=== PATIENT | male | born 1985 | race Two or more races ===

== ENCOUNTER 2017-01-30 12:18 | Emergency (ER) | payer SELFPAY ==
[2017-01-30] VITALS (8 sets, daily range): BP systolic 118–125; BP diastolic 63–83
[~2017-01-30] VITALS: Ht 165.1 cm; Wt 59.0 kg
--- NOTE | 2017-01-30 12:48 | Emergency Room Report ---
History of Present Illness General Chief Complaint: General Complaint Source: EMS (Massiel Reilly) Present Illness HPI 31-year-old male presents to the emergency department brought by ED for danger to self he was noted to be walking directly into traffic on multiple occasions even in the presence of first responders. Patient states he has a history of schizophrenia, has not been taking his medications for approximately 6 months. Reports recent use of LSD. Does not give the name of medications for which she takes. Patient cooperation is very limited. Denies SI/HI, Trauma or fall. Denies pain. Patient is intermittently talkative and appropriate for conversations however using clear words. Denies trauma or fall, denies pain denies past medical history other than schizophrenia. (Massiel Reilly) Allergies: Coded Allergies: No Known Allergies (Unverified , 01/30/17) Patient History Past Medical History: psych hx Past Surgical History: unable to obtain Pertinent Family History: unable to obtain Social History: Reports: drug use - LSD Reviewed Nursing Documentation: PMH: Agreed, PSxH: Agreed (Massiel Reilly) Nursing Documentation-PMH Past Medical History: No Stated History (Massiel Reilly) Review of Systems All Other Systems: negative except mentioned in HPI (Massiel Reilly) Physical Exam Vital Signs Date Time Temp Pulse Resp B/P (MAP) Pulse Ox O2 Delivery O2 Flow Rate FiO2 01/30/17 12:23 98.1 113 18 124/79 98 Room Air Sp02 EP Interpretation: reviewed, normal General Appearance: no apparent distress, alert, GCS 15, non-toxic Head: normocephalic Eyes: bilateral eye normal inspection, bilateral eye PERRL, bilateral eye EOMI ENT: hearing grossly normal, no angioedema, normal voice, other - Pt refuses to open mouth for oral examination Neck: full range of motion, no bony tend Respiratory: chest non-tender, lungs clear, normal breath sounds, speaking full sentences Cardiovascular #1: regular rate, rhythm, tachycardia Cardiovascular #2: 2+ radial (R), 2+ radial (L) Gastrointestinal: normal bowel sounds, non tender, soft, no guarding, no rebound Rectal: deferred Musculoskeletal: back normal, normal range of motion, non-tender, no calf tenderness Neurologic: alert, responsive, motor strength/tone normal, sensory intact, speech normal, other - orientation is limited due to poor pt. cooperation to answer questions Psychiatric: memory normal, mood/affect normal, no suicidal/homicidal ideation , anxious, other - Pt is intermittently hyperactive, and has a very anxious and restless affect with fast speech not appropriate answers to questions, with episodes of silence and refusal to participate. Skin: normal color, no rash, warm/dry, well hydrated (Massiel Reilly) Medical Decision Making PA Attestation Dr. Reynolds is my supervising Physician whom patient management has been discussed with. (Massiel Reilly) Diagnostic Impression: Primary Impression: Behavior concern Additional Impressions: Hx of schizophrenia Methamphetamine use Marijuana use ER Course 31-year-old male presents to the emergency department brought by ED for danger to self he was noted to be walking directly into traffic on multiple occasions even in the presence of first responders. Patient states he has a history of schizophrenia, has not been taking his medications for approximately 6 months. Reports recent use of LSD. Does not give the name of medications for which she takes. Patient cooperation is very limited. Denies SI/HI, Trauma or fall. Denies pain. Patient is intermittently talkative and appropriate for conversations however using clear words. Denies trauma or fall, denies pain denies past medical history other than schizophrenia. Pt is intermittently hyperactive, and has a very anxious and restless affect with fast speech not appropriate answers to questions, with episodes of silence and refusal to participate. Ddx considered but are not limited to OD, SI/HI, psychosis, UTI, intoxication Vital signs: Tachycardic 113 on arrival, re-examination HR has normalized to undre 100, remaining VS are WNL, pt. is afebrile H&PE are most consistent with behavioral/mental health issue in addition to Substance use. ORDERS: -CBC, CMP: low potassium of 3.3 * Repeat potassium: 4.8 -UA: negative for infection see results attached. -UDS: Positive for amphetamines. -Salicylates and Acetaminophen - no acute intoxication. ED INTERVENTIONS: - Behavioral restraints. -Haldol 5mg -Benadryl 50mg IM -Ativan 2mg IM -20Meq KCL IV -1000cc NS - Pt is Medically Cleared upon repeat Potassium now at normal level. -Psych Consult: Dr. Broussard - @6:30 PM - To come in tomorrow A.M for evaluation. DISPOSITION: Pt is on 5150 placed by [employer]. Labs Test 01/30/17 13:00 01/30/17 17:30 White Blood Count 8.2 K/UL (4.8-10.8) Red Blood Count 5.14 M/UL (4.70-6.10) Hemoglobin 15.7 G/DL (14.2-18.0) Hematocrit 46.7 % (42.0-52.0) Mean Corpuscular Volume 91 FL (80-99) Mean Corpuscular Hemoglobin 30.6 PG (27.0-31.0) Mean Corpuscular Hemoglobin Concent 33.6 G/DL (32.0-36.0) Red Cell Distribution Width 11.0 % (11.6-14.8) Platelet Count 385 K/UL (150-450) Mean Platelet Volume 5.7 FL (6.5-10.1) Neutrophils (%) (Auto) 67.4 % (45.0-75.0) Lymphocytes (%) (Auto) 21.8 % (20.0-45.0) Monocytes (%) (Auto) 9.7 % (1.0-10.0) Eosinophils (%) (Auto) 0.5 % (0.0-3.0) Basophils (%) (Auto) 0.5 % (0.0-2.0) Urine Color Yellow Urine Appearance Slightly cloudy Urine pH 5 (4.5-8.0) Urine Specific [place] 1.030 (1.005-1.035) Urine Protein 1+ (NEGATIVE) Urine Glucose (UA) Negative (NEGATIVE) Urine Ketones 2+ (NEGATIVE) Urine Occult Blood Negative (NEGATIVE) Urine Nitrite Negative (NEGATIVE) Urine Bilirubin 1+ (NEGATIVE) Urine Ictotest Negative Urine Urobilinogen 4 MG/DL (0.0-1.0) Urine Leukocyte Esterase Negative (NEGATIVE) Urine RBC 0-2 /HPF (0 - 0) Urine WBC 0-2 /HPF (0 - 0) Urine Squamous Epithelial Cells Few /LPF (NONE/OCC) Urine Bacteria Occasional /HPF (NONE) Urine Mucus Moderate /LPF (NONE/OCC) Sodium Level 141 mEQ/L (135-145) Chloride Level 102 mEQ/L (98-107) Carbon Dioxide Level 26 mEQ/L (20-30) Anion Gap 13 (5-15) Blood Urea Nitrogen 20 mg/dL (7-23) Creatinine 1.0 mg/dL (0.7-1.2) Estimat Glomerular Filtration Rate > 60 mL/min (>60) Glucose Level 89 mg/dL (74-106) Calcium Level 9.4 mg/dL (8.6-10.2) Total Bilirubin 1.0 mg/dL (0.0-1.2) Aspartate Amino Transf (AST/SGOT) 20 U/L (5-40) Alanine Aminotransferase (ALT/SGPT) 18 U/L (3-41) Alkaline Phosphatase 117 U/L (40-129) Total Protein 7.9 g/dL (6.6-8.7) Albumin 4.5 g/dL (3.5-5.2) Globulin 3.4 g/dL Albumin/Globulin Ratio 1.3 (1.0-2.7) Salicylates Level < 1 mg/dL (10-30) Urine Opiates Screen Negative (NEGATIVE) Acetaminophen Level < 10 ug/mL (10-30) Urine Barbiturates Screen Negative (NEGATIVE) Phencyclidine (PCP) Screen Negative (NEGATIVE) Urine Amphetamines Screen Positive (NEGATIVE) Urine Benzodiazepines Screen Negative (NEGATIVE) Urine Cocaine Screen Negative (NEGATIVE) Urine Marijuana (THC) Screen Positive (NEGATIVE) Serum Alcohol < 10 mg/dL Potassium Level 4.8 mEQ/L (3.4-4.9) (Massiel Reilly P.A.) ER Course Received signout from Dr. Figueroa 31-year-old male, with psych history, pending psych eval. Patient is on 5150 hold Patient is currently sleeping comfortably no complaints Patient evaluated by psychiatrist Dr. Broussard. Deemed safe for discharge. Will discharge with Risperdal (RetinoDolores M.Long) Last Vital Signs Date Time Temp Pulse Resp B/P (MAP) Pulse Ox O2 Delivery O2 Flow Rate FiO2 01/30/17 12:23 98.1 113 18 124/79 98 Room Air (Massiel Reilly P.A.) Disposition: HOME, SELF-CARE Condition: Improved Signed Out To: Dr. Figueroa Physician Consult: Dr. Broussard- Psych (Massiel Reilly P.A.) Scripts Risperidone* (RISPERDAL*) 2 Mg Tablet 2 MG ORAL QHS for 14 Days, #14 TAB 0 Refills Prov: Dolores Powell M.D. 01/31/17 Massiel Reilly Jan 30, 2017 12:48 Dolores Powell M.D. Jan 31, 2017 07:07
[2017-01-30] MEDS ORDERED: DiphenhydrAMINE 50mg/ml Inj IM ONE (13:15)
[2017-01-30 13:26] LABS: BASOPHILS % (AUTO) 0.5 % (0.0-2.0); EOSINOPHILS % (AUTO) 0.5 % (0.0-3.0); LYMPHOCYTES % (AUTO) 21.8 % (20.0-45.0); MEAN CORPUSCULAR HEMOGLOBIN 30.6 PG (27.0-31.0); MEAN CORPUSCULAR HGB CONC 33.6 G/DL (32.0-36.0); MEAN CORPUSCULAR VOLUME 91 FL (80-99); MEAN PLATELET VOLUME 5.7 FL (6.5-10.1); MONOCYTES % (AUTO) 9.7 % (1.0-10.0); NEUTROPHILS % (AUTO) 67.4 % (45.0-75.0); PLATELET COUNT 385 K/UL (150-450); RED BLOOD COUNT 5.14 M/UL (4.70-6.10); WHITE BLOOD COUNT 8.2 K/UL (4.8-10.8)
[2017-01-30 13:38] LABS: ACETAMINOPHEN < 10 ug/mL (10-30); ALANINE AMINOTRANSFERASE 18 U/L (3-41); ALBUMIN/GLOBULIN RATIO 1.3 (1.0-2.7); ALCOHOL < 10 mg/dL; ANION GAP 13 (5-15); ASPARTATE AMINO TRANSFERASE 20 U/L (5-40); CALCIUM 9.4 mg/dL (8.6-10.2); CARBON DIOXIDE 26 mEQ/L (20-30); CHLORIDE 102 mEQ/L (98-107); GLOMERULAR FILTRATION RATE > 60 mL/min (>60); HEMOLYSIS 5; POTASSIUM 3.3 mEQ/L (3.4-4.9); SODIUM 141 mEQ/L (135-145); TOTAL PROTEIN 7.9 g/dL (6.6-8.7)
[2017-01-30 13:47] LABS: APPEARANCE,URINE SLIGHTLY CLOUDY; KETONES,URINE 2+ (NEGATIVE); LEUKOCYTE ESTERASE ,URINE NEGATIVE (NEGATIVE); NITRITE,URINE NEGATIVE (NEGATIVE); PH,URINE 5 (4.5-8.0); PROTEIN,URINE 1+ (NEGATIVE); UROBILINOGEN,URINE 4 MG/DL (0.0-1.0)
[2017-01-30] MEDS ORDERED: LORazepam Inj 2mg/ml 1ml IM ONE (14:00)
[2017-01-30 14:09] LABS: BACTERIA,URINE OCCASIONAL /HPF; MUCUS,URINE MODERATE /LPF (NONE/OCC); RBC,URINE 0-2 /HPF (0 - 0); SQUAMOUS EPITHELIAL CELL,UR FEW /LPF (NONE/OCC); WBC,URINE 0-2 /HPF (0 - 0)
[2017-01-30 14:11] LABS: ICTOTEST NEGATIVE
[2017-01-31 01:45] VITALS: BP 98/55
[2017-01-31 04:45] VITALS: BP 101/66
[2017-01-31 06:27] VITALS: BP 92/46
--- NOTE | 2017-01-31 09:59 | Consultation ---
History of Present Illness General Chief Complaint: General Complaint Present Illness HPI 31-year-old male presents to the emergency department brought by ED for danger to self he was noted to be walking directly into traffic. the pt was observed over night and he has been calm and cooperative. the pt stated that he has used meth recently but not mj recently. He didn't endorse psychotic, manic nor depressive sxs. 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 the pt denied suicidal ideation and stated that "I never told anyone I am suicidal." The pt stated that he has an option to live with his grand mother however "she is annoying." Allergies: Coded Allergies: No Known Allergies (Unverified , 01/30/17) Patient History History Provided By: Patient, Medical Record, PMD Healthcare decision maker Resuscitation status Advanced Directive on File Past Medical/Surgical History Past Medical/Surgical History: (1) Hx of schizophrenia (2) Methamphetamine use (3) Behavior concern (4) Marijuana use Review of Systems Psychiatric: Reports: prior hx Physical Exam General Appearance: no apparent distress, alert, thin Neurologic: alert, oriented x 3, responsive, normal mood/affect Last 24 Hour Vital Signs Date Time Temp Pulse Resp B/P (MAP) Pulse Ox O2 Delivery O2 Flow Rate FiO2 01/31/17 06:27 97.8 56 18 92/46 97 Room Air 01/31/17 04:45 98.0 71 18 101/66 100 Room Air 01/31/17 01:45 97.5 63 16 98/55 99 Room Air 01/30/17 21:00 86 20 118/66 99 Room Air 01/30/17 18:29 98.1 91 17 123/64 99 Room Air 01/30/17 14:52 98.1 94 20 124/83 99 Room Air 01/30/17 14:10 94 20 99 Room Air 01/30/17 13:55 97 20 98 Room Air 01/30/17 13:40 98 20 98 Room Air 01/30/17 13:25 98 20 99 Room Air 01/30/17 13:10 99 20 99 Room Air 01/30/17 12:55 99 24 99 Room Air 01/30/17 12:23 98.1 113 18 124/79 98 Room Air Laboratory Tests Test 01/30/17 13:00 01/30/17 17:30 White Blood Count 8.2 K/UL (4.8-10.8) Red Blood Count 5.14 M/UL (4.70-6.10) Hemoglobin 15.7 G/DL (14.2-18.0) Hematocrit 46.7 % (42.0-52.0) Mean Corpuscular Volume 91 FL (80-99) Mean Corpuscular Hemoglobin 30.6 PG (27.0-31.0) Mean Corpuscular Hemoglobin Concent 33.6 G/DL (32.0-36.0) Red Cell Distribution Width 11.0 % (11.6-14.8) L Platelet Count 385 K/UL (150-450) Mean Platelet Volume 5.7 FL (6.5-10.1) L Neutrophils (%) (Auto) 67.4 % (45.0-75.0) Lymphocytes (%) (Auto) 21.8 % (20.0-45.0) Monocytes (%) (Auto) 9.7 % (1.0-10.0) Eosinophils (%) (Auto) 0.5 % (0.0-3.0) Basophils (%) (Auto) 0.5 % (0.0-2.0) Urine Color Yellow Urine Appearance Slightly cloudy Urine pH 5 (4.5-8.0) Urine Specific [place] 1.030 (1.005-1.035) Urine Protein 1+ (NEGATIVE) H Urine Glucose (UA) Negative (NEGATIVE) Urine Ketones 2+ (NEGATIVE) H Urine Occult Blood Negative (NEGATIVE) Urine Nitrite Negative (NEGATIVE) Urine Bilirubin 1+ (NEGATIVE) H Urine Ictotest Negative Urine Urobilinogen 4 MG/DL (0.0-1.0) H Urine Leukocyte Esterase Negative (NEGATIVE) Urine RBC 0-2 /HPF (0 - 0) H Urine WBC 0-2 /HPF (0 - 0) Urine Squamous Epithelial Cells Few /LPF (NONE/OCC) Urine Bacteria Occasional /HPF (NONE) Urine Mucus Moderate /LPF (NONE/OCC) H Sodium Level 141 mEQ/L (135-145) Potassium Level 3.3 mEQ/L (3.4-4.9) L 4.8 mEQ/L (3.4-4.9) Chloride Level 102 mEQ/L (98-107) Carbon Dioxide Level 26 mEQ/L (20-30) Anion Gap 13 (5-15) Blood Urea Nitrogen 20 mg/dL (7-23) Creatinine 1.0 mg/dL (0.7-1.2) Estimat Glomerular Filtration Rate > 60 mL/min (>60) Glucose Level 89 mg/dL (74-106) Calcium Level 9.4 mg/dL (8.6-10.2) Total Bilirubin 1.0 mg/dL (0.0-1.2) Aspartate Amino Transf (AST/SGOT) 20 U/L (5-40) Alanine Aminotransferase (ALT/SGPT) 18 U/L (3-41) Alkaline Phosphatase 117 U/L (40-129) Total Protein 7.9 g/dL (6.6-8.7) Albumin 4.5 g/dL (3.5-5.2) Globulin 3.4 g/dL Albumin/Globulin Ratio 1.3 (1.0-2.7) Salicylates Level < 1 mg/dL (10-30) L Urine Opiates Screen Negative (NEGATIVE) Acetaminophen Level < 10 ug/mL (10-30) L Urine Barbiturates Screen Negative (NEGATIVE) Phencyclidine (PCP) Screen Negative (NEGATIVE) Urine Amphetamines Screen Positive (NEGATIVE) H Urine Benzodiazepines Screen Negative (NEGATIVE) Urine Cocaine Screen Negative (NEGATIVE) Urine Marijuana (THC) Screen Positive (NEGATIVE) H Serum Alcohol < 10 mg/dL Height (Feet): 5 Height (Inches): 5.00 Weight (Pounds): 130 Assessment/Plan Status: stable Assessment/Plan History of bipolar and drug use. the pt never been off drugs for at least 30 days within the past 6 years. the pt is not at imminent dts/dto risperdal 2mg po [facility] [place] 5[address] not meeting the criteria for Delores uGtierrez M.D. Jan 31, 2017 09:59
[2017-01-31] MEDS ORDERED: RISPERDAL2 MG ORAL (10:29)
[2017-01-31 10:35] VITALS: BP 112/67
== END 2017-01-31 10:35 | disposition home or self-care (01) ==
LOC: EDBD 12:18 → EMR 12:53
DX: R46.89 Other symptoms and signs involving appearance and behavior (principal); F15.90 Other stimulant use, unspecified, uncomplicated; F12.90 Cannabis use, unspecified, uncomplicated; Z86.59 Personal history of other mental and behavioral disorders
CPT/HCPCS: 36415; 80053; 80300; 81003; 84132; 85025; 96361; 96365; 96372; 99285; G0480; J1200; J3480; 80329